=== PATIENT | female | born 1995 | race Caucasian/White ===

== ENCOUNTER 2020-10-13 01:17 | Emergency (ER) | payer BC ==
[2020-10-13 01:25] VITALS: TEMP 97.8
--- NOTE | 2020-10-13 02:21 | XR ---
EXAM: XR Chest, 2 Views CLINICAL HISTORY: ITS.REASON XR Reason: congestion TECHNIQUE: Frontal and lateral views of the chest. COMPARISON: No relevant prior studies available. FINDINGS: Lungs: Mild perihilar/hilar opacities. Pleural space: No significant pleural effusion or pneumothorax. Heart: Unremarkable. Mediastinum: Unremarkable. Bones/joints: No acute fracture. IMPRESSION: Mild perihilar/hilar opacities. Correlate clinically regarding inflammatory/infectious process.
--- NOTE | 2020-10-13 02:44 | ED ---
URI HPI - General Chief Complaint: Upper Respiratory Infection Stated Complaint: Chest Pain Time Seen by Provider: 10/13/20 01:28 Source: patient Mode of arrival: ambulatory Limitations: no limitations - History of Present Illness Initial Comments: This patient is 25-year-old woman who presents with a feeling of chest congestion. The patient states she was in her usual state of health until approximately week ago when she developed some symptoms she thought were due to ALLERGIES. She was having some nasal congestion and drainage. She is noticing postnasal drip. It seemed over the interval that she developed some chest congestion and a little bit of cough. When the symptoms persisted she also should have evaluation. The patient notes that she did receive first covid vaccination last week. MD Complaint: cough, other Onset/Timin -: week(s) Severity: mild Consistency: constant Improves With: nothing Worsens With: nothing Associated Symptoms: cough - Related Data Previous Rx's Medication Instructions Recorded Azithromycin [Zithromax Z-pack (6 250 mg PO DIRECTED #6 tab 10/13/20 tabs)] predniSONE [Deltasone] 20 mg PO BID #8 tab 10/13/20 Allergies Allergy/AdvReac Type Severity Reaction Status Date / Time sulfamethoxazole Allergy Rash/Hives Verified 10/13/20 01:25 [From ] trimethoprim [From ] Allergy Rash/Hives Verified 10/13/20 01:25 Review of Systems ROS Statement: Those systems with pertinent positive or pertinent negative responses have been documented in the HPI. ROS Other: All systems not noted in ROS Statement are negative. Constitutional: Denies: fever, chills Respiratory: Reports: cough, dyspnea. Denies: hemoptysis Cardiovascular: Denies: chest pain, palpitations, edema Gastrointestinal: Denies: abdominal pain, vomiting, diarrhea Genitourinary: Denies: dysuria, hematuria Musculoskeletal: Denies: back pain Skin: Denies: rash Neurological: Denies: headache, weakness, numbness Past Medical History Past Medical History: No Reported History History of Any Multi-Drug Resistant Organisms: None Reported Additional Past Surgical History / Comment(s): lump removal Past Psychological History: No Psychological Hx Reported Smoking Status: Never smoker Past Alcohol Use History: None Reported Past Drug Use History: None Reported General Exam Limitations: no limitations General appearance: alert, in no apparent distress Head exam: Present: atraumatic, normocephalic Eye exam: Present: normal appearance. Absent: scleral icterus, conjunctival injection ENT exam: Present: normal oropharynx, mucous membranes moist Neck exam: Present: normal inspection, full ROM Respiratory exam: Present: normal lung sounds bilaterally. Absent: respiratory distress, wheezes, rales, rhonchi, stridor Cardiovascular Exam: Present: regular rate, normal rhythm, normal heart sounds. Absent: systolic murmur, diastolic murmur, rubs, gallop GI/Abdominal exam: Present: soft. Absent: distended, tenderness, guarding, rebound, rigid, mass Extremities exam: Present: normal inspection, normal capillary refill. Absent: pedal edema, calf tenderness Back exam: Present: normal inspection. Absent: CVA tenderness (R), CVA tenderness (L) Neurological exam: Present: alert Skin exam: Present: warm, dry, intact, normal color. Absent: rash Course Vital Signs 10/13/20 01:22 Temperature 97.8 F Pulse Rate 91 Respiratory 20 Rate Blood Pressure 124/84 O2 Sat by Pulse 99 Oximetry Medical Decision Making - Medical Decision Making Patient is 25-year-old woman presenting with some chest congestion followed some upper respiratory symptoms. 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 Patient will be started on steroid after she received a dose of that here. She is given prescription for azithromycin to start should she develop any symptoms suggestive of infection and these were discussed with patient and family. Including but not limited to fever, increasing cough, purulent sputum, etc. Discussed appropriate further care and return parameters. - Lab Data Lab Results 10/13/20 Range/Units 02:46 Coronavirus (PCR) Not Detected (Not Detectd) - EKG Data -: EKG Interpreted by Mi EKG shows normal: sinus rhythm, axis (Normal), intervals (Normal), QRS complexes (Normal), ST-T waves (Normal) Rate: tachycardia (Rate 104 bpm) Disposition Clinical Impression: Acute bronchitis Disposition: HOME SELF-CARE Condition: Good Instructions (If sedation given, give patient instructions): Acute Bronchitis (ED) Prescriptions: predniSONE [Deltasone] 20 mg PO BID #8 tab Azithromycin [Zithromax Z-pack (6 tabs)] 250 mg PO DIRECTED #6 tab Is patient prescribed a controlled substance at d/c from ED?: No Referrals: Presley Osei Jr, DO [Primary Care Provider] - 1-2 days
[2020-10-13] MEDS ORDERED: AZITHROMYCIN 500 MG TAB PO STA (03:35)
[2020-10-13] MEDS ORDERED: predniSONE 20 MG TAB PO STA (03:35)
[2020-10-13 03:59] VITALS: BP 125/81; PULSE 76; RESP 18
== END 2020-10-13 03:58 | disposition home or self-care (01) ==
LOC: EC 01:17 → MERGE 01:17 → EC 03:58
DX: J20.9 Acute bronchitis, unspecified (principal); Z88.2 Allergy status to sulfonamides; Z88.1 Allergy status to other antibiotic agents; Z20.822 Contact with and (suspected) exposure to COVID-19
CPT/HCPCS: 99285; 93005; 87635; 71046; J7512

== ENCOUNTER → 2021-05-05 | Outpatient (CLI) | payer BC ==
--- NOTE | 2021-05-05 08:06 | CT ---
EXAMINATION TYPE: CT sinus wo con DATE OF EXAM: 05/05/2021 COMPARISON: NONE HISTORY: polyp maxillary sinus. CT DLP: 731.60 mGycm. Automated Exposure Control for Dose Reduction was Utilized. TECHNIQUE: CT scan of the sinuses is performed without contrast, axial images are obtained, coronal r eformatted images are also reviewed. FINDINGS: Mild mucosal thickening with scattered tiny polyps and/or cysts in the inferior aspect of t he left maxillary sinus measuring up to 8 mm axial image 16. More mild to moderate mucosal thickening with larger 17 mm polyp or cyst in the inferior right maxillary sinus axial image 11. Patchy inferio r secretions. Mild mucosal thickening anteriorly and bilateral sphenoid sinuses. Partially ossified soft tissue or thickened mucosa on the larger caliber right sphenoid sinus. Mild mucosal thickening in ethmoid sinuses bilaterally. Bilateral frontal sinuses are clear. There are ovoid opacifications or suspected mucous retention cysts or polyps centrally filling the bi lateral ethmoid bulla near maxillary antrum. Patency narrowing on the left is present coronal image 2 6. There is occlusion on the right due to central mucosal thickening. Visualized portion of mastoid air cells show no abnormal opacification. The globes are intact bilat erally. Slight brain parenchyma unremarkable. IMPRESSION: Bilateral paranasal sinus disease as detailed above predominately chronic in nature, acut e component inferiorly right maxillary sinus is however present.
== END | disposition home or self-care (01) ==
LOC: RADCTMAIN 06:31
PROVIDERS: ATTEND Otolaryngology
DX: J33.9 Nasal polyp, unspecified (principal); J32.9 Chronic sinusitis, unspecified
CPT/HCPCS: 70486

== ENCOUNTER → 2021-11-11 | Outpatient (CLI) | payer BC | END | disposition home or self-care (01) | LOC: LABPAT 10:01 | PROVIDERS: ATTEND Obstetrics & Gynecology | DX: Z01.812 Encounter for preprocedural laboratory examination (principal) | CPT/HCPCS: 85025; 86850; 86900; 86901 ==

== ENCOUNTER 2021-11-12 07:21 | Day surgery (SDC) | payer BC ==
[2021-11-11 10:44] LABS: Basophils % (A) 1 %; Eosinophils # (A) 0.1 k/uL (0-0.7); Eosinophils % (A) 1 %; HCT 41.5 % (34.0-46.0); HGB 14.1 gm/dL (11.4-16.0); Lymphocytes # (A) 1.2 k/uL (1.0-4.8); Lymphocytes % (A) 14 %; MCHC 33.9 g/dL (31.0-37.0); MCV 94.2 fL (80.0-100.0); Mean Platelet Volume 7.5; Monocytes # (A) 0.4 k/uL (0-1.0); Monocytes % (A) 5 %; Neutrophils # (A) 6.6 k/uL (1.3-7.7); Neutrophils % (A) 78 %; Platelet Count 331 k/uL (150-450); RDW 12.2 % (11.5-15.5); WBC 8.5 k/uL (3.8-10.6)
[2021-11-11 13:50] VITALS: BMI 28.3
--- NOTE | 2021-11-12 07:00 | P.HPOB ---
History of Present Illness H&P Date: 11/12/21 Chief Complaint: interstitial 26 year old G0 presented to the office c/o pelvic pain. US shows an interstitial in the right cornua/IP. The plan today will be laparoscopic cornuostomy with removal of ectopic. Pt understands this could result in Total abdominal hysterectomy. All Risks, benefits and alternatives have been discussed. Review of Systems All systems: negative Constitutional: Denies chills, Denies fever Eyes: denies blurred vision, denies pain Ears, nose, mouth and throat: Denies headache, Denies sore throat Cardiovascular: Denies chest pain, Denies shortness of breath Respiratory: Denies cough Gastrointestinal: Denies abdominal pain, Denies diarrhea, Denies nausea, Denies vomiting Genitourinary: Denies dysuria, Denies hematuria Musculoskeletal: Denies myalgias Integumentary: Denies pruritus, Denies rash Neurological: Denies numbness, Denies weakness Psychiatric: Denies anxiety, Denies depression Endocrine: Denies fatigue, Denies weight change Past Medical History Past Medical History: No Reported History History of Any Multi-Drug Resistant Organisms: None Reported Past Surgical History: Tonsillectomy Additional Past Surgical History / Comment(s): lump removal FROM ARM Past Anesthesia/Blood Transfusion Reactions: No Reported Reaction Smoking Status: Never smoker - Past Family History Mother Family Medical History: No Reported History Medications and Allergies Home Medications Medication Instructions Recorded Confirmed Type Cephalexin [Keflex] 500 mg PO Q12HR 11/11/21 11/11/21 History Allergies Allergy/AdvReac Type Severity Reaction Status Date / Time sulfamethoxazole Allergy Rash/Hives Verified 11/11/21 13:22 [From ] trimethoprim [From ] Allergy Rash/Hives Verified 11/11/21 13:22 Exam Osteopathic Statement: *. No significant issues noted on an osteopathic structural exam other than those noted in the History and Physical/Consult. Intake and Output 11/11/21 11/11/21 11/12/21 14:59 22:59 06:59 Other: Weight 74.843 kg HEart: RRR Lungs: CTAB Abdomen: soft, tender in low pelvis Extremeties: neg nav's Assessment and Plan (1) Cornual Status: Acute Code(s): O00.80 - OTHER ECTOPIC WITHOUT INTRAUTERINE SNOMED Code(s): 29893596 Plan: Laparoscopic cornuostomy with removal of ectopic using da eder
[2021-11-12] MEDS ORDERED: MIDAZOLAM 2 MG/2 ML VIAL IV PRN (07:35)
[2021-11-12] MEDS ORDERED: ONDANSETRON 4 MG/2 ML VIAL IVP ONE (07:35)
[2021-11-12] MEDS ORDERED: DEXAMETHASONE SOD PHOSPHATE 4 MG/ML 1 ML VIAL IV ONE (07:35)
[2021-11-12] MEDS ORDERED: LIDOCAINE 1% (10MG/ML) FOR IV START INTRADERMA PRN (07:35)
[2021-11-12] MEDS ORDERED: HYDROmorphone 0.5 MG/0.5 ML SYRINGE IVP PRN (07:35)
[2021-11-12] MEDS ORDERED: LIDOCAINE 1% (10MG/ML) FOR IV START SQ ONE (08:14)
[2021-11-12] MEDS: LACTATED RINGERS 1,000 ML IV SCH ×2 (08:14→16:44)
[2021-11-12] MEDS ORDERED: MIDAZOLAM 2 MG/2 ML VIAL IV ONE (09:23)
[2021-11-12] MEDS ORDERED: ROCURONIUM 10 MG/ML (5 ML VIAL) IV ONE (09:54)
[2021-11-12] MEDS ORDERED: PROPOFOL 10 MG/ML 20 ML VIAL IV ONE (09:54)
[2021-11-12] MEDS ORDERED: fentaNYL (PF) 50 MCG/ML 2 ML AMP ONE (09:54)
[2021-11-12] MEDS ORDERED: SUCCINYLCHOLINE CHLORIDE 100 MG/5 ML SYR IV ONE (09:54)
[2021-11-12] MEDS ORDERED: MIDAZOLAM 2 MG/2 ML VIAL ONE (09:54)
[2021-11-12] MEDS ORDERED: NEOSTIGMINE 1 MG/ML 10 ML VIAL ONE (09:54)
[2021-11-12] MEDS ORDERED: LIDOCAINE 2% INJ 20 MG/ML (2 ML VIAL) ONE (09:54)
[2021-11-12] MEDS ORDERED: GLYCOPYRROLATE 0.2 MG/ML 2 ML VIAL ONE (09:54)
[2021-11-12] MEDS ORDERED: HYDROmorphone (PF) 1 MG/ML ONE (09:54)
[2021-11-12] MEDS ORDERED: KETOROLAC 30 MG/ML 1 ML VIAL ONE (09:54)
[2021-11-12] MEDS ORDERED: LACTATED RINGERS 1,000 ML IV ONE (10:30)
[2021-11-12] MEDS ORDERED: BUPIVACAINE (PF) 0.25% 30 ML VIAL SQ ONE (10:32)
[2021-11-12] MEDS ORDERED: VASOPRESSIN 20 UNIT/ML 1 ML VIAL IM ONE (10:33)
[2021-11-12] MEDS ORDERED: CELLULOSE,OXIDIZED 1 EACH EACH MISCELLANE ONE (11:09)
--- NOTE | 2021-11-12 12:05 | P.OP ---
Date of Procedure: 11/12/21 Preoperative Diagnosis: 1. 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 Interstitial of the right cornua Procedure(s) Performed: Laparoscopic cornu ostomy with removal of ectopic , removal of right complex ovarian cyst, lysis of adhesions Anesthesia: AMANDA Surgeon: Ginny Pastor Estimated Blood Loss (ml): 25 IV fluids (ml): 800 Urine output (ml): 150 Pathology: other (Ectopic and piece of ovarian cyst) Condition: stable Disposition: PACU Operative Findings: Bulge in the right cornua. Uterus sounded to 7 cm. Extensive filmy bowel adhesions to the right pelvic sidewall and anterior abdominal wall. Complex ovarian cyst in the right ovary. Description of Procedure: Patient taken the operating room where general anesthesia was obtained without difficulty. She is prepped and draped in normal sterile fashion dorsal lithotomy position, legs placed in the Fabian stirrups. Weighted speculum placed in the vagina and the anterior lip the cervix was grasped with single-tooth tenaculum. The uterus gently sounded to 7 cm and the kroner manipulator was gently placed. Crook catheter was also placed. Attention was then turned to the abdomen and gloves were changed. A 5 mm supraumbilical incision was made the scalpel and a 5 mm optical trocar was placed under direct visualization. 10 cm to the right of this and 2 cm down a 5 mm incision was made and 8 mm da Emmett port was placed under direct visualization. Same measurements on the opposite side of the patient's abdomen, the 5 mm incision was made and 8 mm da Emmett port was placed under direct visualization. In the left upper quadrant a 10 mm incision was made and a 10 mm optical trocar was placed under direct visualization. The 5 mm optical trocar was then replaced with the 8 mm da Emmett camera port. The robot was docked on patient's right side. A 20-gauge spinal needle and under direct visualization through the low pelvis as my licensed physical therapy assistant anteverted the uterus. I used diluted vasopressin, 20 units in 60 mL and injected in a few different areas around and above the ectopic bulge this diluted vasopressin. I used 17 mL. The uterus blanched and it was evident that the vasoconstriction was effective. The camera was introduced and then the monopolar curved scissor and fenestrated bipolar placed under direct visualization. I broke scrub and went to the physician console. The uterus is anteverted and the bulge was noted in the right cornu the posterior aspect of the uterus posterior to the round ligament and fallopian tube. I took the monopolar curved scissors and made a linear transverse cut on the cornua of the uterus all the way down to the endometrium. A small amount of Chocolate fluid did pour out. I removed the gestational and endometrial tissue noted beneath this area. Hemostasis was assured. The right ovary did have a complex cyst on it as well. I broke this open and took a piece of the cyst for pathology. Hemostasis was assured with the monopolar curved scissors. Pieces of 0 Vicryl were then used to close the cornuostomy in [id number] stitches. The pelvis was copiously irrigated and hemostasis was again assured. I then placed a piece of Interceed over the fundus of the uterus contacted behind the right ovary to prevent further adhesions. All instruments were removed from the abdomen and the robot was undocked. I scrubbed back in to perform a cystoscopy. There were jets from both ureteral orifices. The abdominal incisions were closed with 4-0 Vicryl in a subcuticular fashion. Patient tolerated the procedure well, sponge and instrument counts correct 2 and she was taken to recovery room in stable condition condition
[2021-11-12] MEDS ORDERED: SIMETHICONE 80 MG CHEWABLE PO PRN (12:59)
[2021-11-12] MEDS ORDERED: ONDANSETRON 4 MG/2 ML VIAL IVP PRN (12:59)
[2021-11-12] MEDS ORDERED: Acetaminophen-Codeine 300-30mg TAB PO PRN (12:59)
[2021-11-12] MEDS ORDERED: IBUPROFEN 600 MG TAB PO PRN (12:59)
[2021-11-12] MEDS: KETOROLAC 15 MG/ML 1 ML VIAL IVP PRN ×2 (13:11→19:54)
[2021-11-12 13:16] VITALS: RESP 16
[2021-11-12] MEDS: Acetaminophen-Codeine 300-30mg TAB PO PRN ×2 (15:52→22:35)
[2021-11-12] MEDS: SENNOSIDES-DOCUSATE SODIUM 1 EACH TAB PO SCH (22:36)
[2021-11-12] MEDS: CEPHALEXIN 500 MG CAP PO SCH (22:36)
[2021-11-12 23:59] VITALS: BP 103/71; PULSE 98; TEMP 98.5
[2021-11-13] MEDS: KETOROLAC 15 MG/ML 1 ML VIAL IVP PRN (06:08)
--- NOTE | 2021-11-13 07:53 | P.DS ---
Providers Expected date of discharge: 11/13/21 Attending physician: Ginny Pastor Primary care physician: Presley Osei - Discharge Diagnosis(es) (1) Cornual Current Visit: No Status: Resolved (2) Status post robot-assisted surgical procedure Current Visit: Yes Status: Acute Hospital Course: Patient presented for laparoscopic removal of ectopic via cornuostomy using da Emmett. She underwent this procedure without crepitation. Postoperatively she is doing very well. Denies nausea, vomiting, chest pain, shortness of breath or any calf pain. Vitals are stable and she will be discharged home postoperative day #1 in stable condition. I have advised the patient and her that I want to follow her hormone level until 0. I will order one beta hCG today to get started and then we will follow this weekly until 0. She will follow-up with me in the office in 1 week. Plan - Discharge Summary Discharge Rx Participant: Yes New Discharge Prescriptions: New Ibuprofen [Motrin] 600 mg PO Q6HR PRN #40 tab PRN Reason: Mild Discomfort Acetaminophen-Codeine 300-30mg [Tylenol w/codeine #3] 1 - 2 each PO Q6HR PRN #24 tab PRN Reason: Severe Pain No Action Cephalexin [Keflex] 500 mg PO Q12HR Discharge Medication List Cephalexin [Keflex] 500 mg PO Q12HR 11/11/21 [History] Acetaminophen-Codeine 300-30mg [Tylenol w/codeine #3] 1 - 2 each PO Q6HR PRN #24 tab 11/13/21 [Rx] Ibuprofen [Motrin] 600 mg PO Q6HR PRN #40 tab 11/13/21 [Rx] Follow up Appointment(s)/Referral(s): Ginny Pastor DO [Doctor of Osteopathic Medicine] - 1 Week Discharge Disposition: HOME SELF-CARE
[2021-11-13] MEDS: CEPHALEXIN 500 MG CAP PO SCH (08:44)
[2021-11-13] MEDS: Acetaminophen-Codeine 300-30mg TAB PO PRN (08:44)
[2021-11-13] MEDS: SENNOSIDES-DOCUSATE SODIUM 1 EACH TAB PO SCH (09:13)
[2021-11-13] MEDS ORDERED: ACETAMINOPHEN TAB 325 MG TAB PO PRN (11:54)
== END 2021-11-13 09:52 | disposition home or self-care (01) ==
LOC: OR 07:21 → 4FBP 11:28 → OR 11-13 09:52
PROVIDERS: ATTEND Obstetrics & Gynecology
DX: O00.81 Other ectopic pregnancy with intrauterine pregnancy (principal); N83.201 Unspecified ovarian cyst, right side; K66.0 Peritoneal adhesions (postprocedural) (postinfection); Z98.890 Other specified postprocedural states; Z88.2 Allergy status to sulfonamides
CPT/HCPCS: 86900; 86901; 88305; 85025; 86850; 84702; 59150; J2250; J1100; J2710; J0690; J2405; J3010; J1885 ×3; J1170 ×2; J0330; J2704; J2001

== ENCOUNTER 2023-04-17 02:38 | Emergency (ER) | payer BC ==
[2023-04-17 02:54] VITALS: RESP 18
[2023-04-17] MEDS ORDERED: ONDANSETRON 4 MG/2 ML VIAL IVP STA (02:54)
[2023-04-17] MEDS ORDERED: SODIUM CHLORIDE 0.9% 1,000 ML IV ONE (02:54)
[2023-04-17] MEDS ORDERED: DEXTROSE 5%-0.9% NACL 1,000 ML IV SCH (03:00)
[2023-04-17 03:39] LABS: Basophils % (A) 0 %; Eosinophils # (A) 0.1 k/uL (0-0.7); Eosinophils % (A) 1 %; HCT 38.7 % (34.0-46.0); HGB 13.4 gm/dL (11.4-16.0); Lymphocytes # (A) 0.7 k/uL (1.0-4.8); Lymphocytes % (A) 8 %; MCH 31.5 pg (25.0-35.0); MCHC 34.5 g/dL (31.0-37.0); MCV 91.4 fL (80.0-100.0); Mean Platelet Volume 7.8; Monocytes # (A) 0.5 k/uL (0-1.0); Monocytes % (A) 6 %; Neutrophils # (A) 7.1 k/uL (1.3-7.7); Neutrophils % (A) 84 %; Platelet Count 232 k/uL (150-450); RBC 4.24 m/uL (3.80-5.40); RDW 12.2 % (11.5-15.5); WBC 8.4 k/uL (3.8-10.6)
[2023-04-17 03:53] LABS: ALT 38 U/L (4-34); AST 47 U/L (14-36); African American GFR (CKD) >90 (>60 ml/min/1.73 sqM); Albumin 3.9 g/dL (3.5-5.0); Alkaline Phosphatase 86 U/L (38-126); Anion Gap 12 mmol/L; Blood Urea Nitrogen 9 mg/dL (7-17); Calcium 9.2 mg/dL (8.4-10.2); Carbon Dioxide 18 mmol/L (22-30); Chloride 104 mmol/L (98-107); Glucose 96 mg/dL (74-99); Non-African American GFR(CKD) >90 (>60 ml/min/1.73 sqM); Potassium 3.9 mmol/L (3.5-5.1); Sodium 134 mmol/L (137-145); Total Bilirubin 0.6 mg/dL (0.2-1.3); Total Protein 6.9 g/dL (6.3-8.2)
[2023-04-17 04:35] LABS: Amorphous Sediment,Urine Occasional /hpf; Appearance,Urine Cloudy (Clear); Bacteria,Urine Rare /hpf; Bilirubin,Urine Negative (Negative); Blood,Urine Negative (Negative); Color,Urine Yellow; Glucose,Urine (UA) Negative (Negative); Hyaline Casts,Urine 1 /lpf (0-2); Ketones,Urine 4+ (Negative); Leukocyte Esterase,Urine Negative (Negative); Mucus,Urine Moderate /hpf; Nitrite,Urine Negative (Negative); Protein,Urine 1+ (Negative); RBC,Urine 1 /hpf (0-5); Squamous Epithelial Cell,Urine 8 /hpf (0-4); Urobilinogen,Urine <2.0 mg/dL (<2.0); WBC,Urine 2 /hpf (0-5)
--- NOTE | 2023-04-17 04:44 | ED ---
General Adult HPI - General Chief complaint: Nausea/Vomiting/Diarrhea Stated complaint: nausea,vomiting,15 wks preg Time Seen by Provider: 04/17/23 02:49 Source: patient, RN notes reviewed Mode of arrival: ambulatory Limitations: no limitations - History of Present Illness Initial comments: 28-year-old female who is G1, P0 presents to the emergency department with a chief complaint of acute nausea and vomiting. Patient reports she has been nauseous with episodes of vomiting over the last 24 hours. She denies recent sick contacts. She has not been taking any medications at home for her symptoms. Denies known recent sick contacts. She denies any abdominal pain, fever, cough, chills, flank pain, dysuria, hematuria, vaginal bleeding, vaginal discharge or low back pain. This is her first she is approximately 15 weeks along. She denies any nausea or vomiting in her first trimester. - Related Data Home Medications Medication Instructions Recorded Confirmed Cephalexin [Keflex] 500 mg PO Q12HR 11/11/21 11/12/21 Previous Rx's Medication Instructions Recorded Acetaminophen-Codeine 300-30mg 1 - 2 each PO Q6HR PRN #24 tab 11/13/21 [Tylenol w/codeine #3] Ibuprofen [Motrin] 600 mg PO Q6HR PRN #40 tab 11/13/21 Ondansetron Odt [Zofran Odt] 4 mg PO Q8HR PRN #10 tab 04/17/23 Allergies Allergy/AdvReac Type Severity Reaction Status Date / Time sulfamethoxazole Allergy Rash/Hives Verified 04/17/23 02:43 [From Sept] trimethoprim [From Septra] Allergy Rash/Hives Verified 04/17/23 02:43 Review of Systems ROS Statement: Those systems with pertinent positive or pertinent negative responses have been documented in the HPI. ROS Other: All systems not noted in ROS Statement are negative. Past Medical History Past Medical History: No Reported History History of Any Multi-Drug Resistant Organisms: None Reported Past Surgical History: Tonsillectomy Additional Past Surgical History / Comment(s): lump removal FROM ARM Past Anesthesia/Blood Transfusion Reactions: No Reported Reaction Past Psychological History: No Psychological Hx Reported Smoking Status: Never smoker Past Alcohol Use History: None Reported Past Drug Use History: None Reported - Past Family History Mother Family Medical History: No Reported History General Exam - General Exam Comments Initial Comments: General: Alert, in no acute distress Head: atraumatic normocephalic. Eyes PERRL, EOMI intact, mucous membranes moist Respiratory: Lungs clear to auscultation bilaterally Cardiovascular: Regular Rate and rhythm Abdominal: Soft without guarding or rebound, non-tender Extremities: Normal inspection with full range of motion and normal capillary refill Neuroogic: alert and oriented 3, CN II-XII intact, able to ambulate with steady gait Skin: warm dry and intact with normal color Limitations: no limitations Course Vital Signs 04/17/23 04/17/23 04/17/23 02:43 03:45 05:00 Temperature 98.3 F Pulse Rate 98 92 84 Respiratory 18 18 18 Rate Blood Pressure 123/86 122/70 118/68 O2 Sat by Pulse 98 100 98 Oximetry 04/17/23 05:25 Temperature 98.0 F Pulse Rate Respiratory Rate Blood Pressure O2 Sat by Pulse Oximetry - Reevaluation(s) Reevaluation #1: 04/17/23 04:39 Patient reevaluated. Patient reports symptomatic improvement status post medications. Aware awaiting urinalysis results. Reevaluation #2: 04/17/23 05:17 Patient reevaluated. Patient able to tolerate oral intake. Medical Decision Making - Medical Decision Making Was pt. sent in by a medical professional or institution (RUBEN Aguilera, TIME CLOCK REPAIRER, urgent care, hospital, or shelter...) When possible be specific @ -[No] Did you speak to anyone other than the patient for history (EMS, parent, family, police, friend...)? What history was obtained from this source @ -[No] Did you review nursing and triage notes (agree or disagree)? Why? @ -[I reviewed and agree with nursing and triage notes] Were old charts reviewed (outside hosp., previous admission, EMS record, old EKG, old radiological studies, urgent care reports/EKG's, shelter records)? Report findings @ -[No old charts were reviewed] Differential Diagnosis (chest pain, altered mental status, abdominal pain women, abdominal pain men, vaginal bleeding, weakness, fever, dyspnea, syncope, headache, dizziness, GI bleed, back pain, seizure, CVA, palpatations, mental health, musculoskeletal)? @ -[not applicable] EKG interpreted by me (3pts min.). @ -[As above] X-rays interpreted by me (1pt min.). @ -[None done] CT interpreted by me (1pt min.). @ -[None done] U/S interpreted by me (1pt. min.). @ -[None done] What testing was considered but not performed or refused? (CT, X-rays, U/S, labs)? Why? @ -[None] What meds were considered but not given or refused? Why? @ -[None] Did you discuss the management of the patient with other professionals (professionals i.e. , PA, TIME CLOCK REPAIRER, lab, RT, psych nurse, social services, rand sewer, teacher, emergency response officer, window caser)? Give summary @ -[No] Was smoking cessation discussed for >3mins.? @ -[No] Was critical care preformed (if so, how long)? @ -[No] Were there social determinants of health that impacted care today? How? (Homelessness, low income, unemployed, alcoholism, drug addiction, transportation, low edu. Level, literacy, decrease access to med. care, long term, rehab)? @ -[No] Was there de-escalation of care discussed even if they declined (Discuss DNR or withdrawal of care, Hospice)? DNR status @ -[No] What co-morbidities impacted this encounter? (DM, HTN, Smoking, COPD, CAD, Cancer, CVA, ARF, Chemo, Hep., AIDS, mental health diagnosis, sleep apnea, morbid obesity)? @ -[None] Was patient admitted / discharged? Hospital course, mention meds given and route, prescriptions, significant lab abnormalities, going to OR and other pertinent info. @ -Discharged. This is a pleasant 28-year-old female who presents the emergency department with nausea and vomiting. Patient had a thorough history and physical exam performed. Vital signs are stable. Patient afebrile. Heart rate regular rate and rhythm, lungs are to auscultation bilaterally abdomen is soft and gravid. Patient did not have any episodes of vomiting during the course of the ED. She was provided Zofran, Pepcid, 1 L IV fluids and D5 symptomatic improvement. Patient was able to pass by mouth challenge. Patient had laboratory studies which were essentially unremarkable. 4+ ketones noted in the urine. She is agreeable with the plan for discharge home. Return precautions discussed at length. Recommend close follow-up with primary [facility]SE [facility]CKER in 1-2 days. Case discussed with Dr. Monroe, ED attending who agrees with plan of care Undiagnosed new problem with uncertain prognosis? @ -[No] Drug Therapy requiring intensive monitoring for toxicity (Heparin, Nitro, Insulin, Cardizem)? @ -[No] Were any procedures done? @ -[No] Diagnosis/symptom? @ -Nausea and Vomiting Acute, or Chronic, or Acute on Chronic? @ -Acute Uncomplicated (without systemic symptoms) or Complicated (systemic symptoms)? @ -Uncomplicated Side effects of treatment? @ -[No] Exacerbation, Progression, or Severe Exacerbation? @ -[No] Poses a threat to life or bodily function? How? (Chest pain, [place], [place], pneumonia, PE, COPD, DKA, ARF, appy, cholecystitis, CVA, Diverticulitis, Homicidal, Suicidal, threat to staff... and all critical care pts) @ -Low likleihood - Lab Data Result diagrams: 04/17/23 03:25 04/17/23 03:25 Lab Results 04/17/23 04/17/23 04/17/23 Range/Units 03:25 03:25 03:25 WBC 8.4 (3.8-10.6) k/uL RBC 4.24 (3.80-5.40) m/uL Hgb 13.4 (11.4-16.0) gm/dL Hct 38.7 (34.0-46.0) % MCV 91.4 (80.0-100.0) fL MCH 31.5 (25.0-35.0) pg MCHC 34.5 (31.0-37.0) g/dL RDW 12.2 (11.5-15.5) % Plt Count 232 (150-450) k/uL MPV 7.8 Neutrophils % 84 % Lymphocytes % 8 % Monocytes % 6 % Eosinophils % 1 % Basophils % 0 % Neutrophils # 7.1 (1.3-7.7) k/uL Lymphocytes # 0.7 L (1.0-4.8) k/uL Monocytes # 0.5 (0-1.0) k/uL Eosinophils # 0.1 (0-0.7) k/uL Basophils # 0.0 (0-0.2) k/uL Sodium 134 L (137-145) mmol/L Potassium 3.9 (3.5-5.1) mmol/L Chloride 104 (98-107) mmol/L Carbon Dioxide 18 L (22-30) mmol/L Anion Gap 12 mmol/L BUN 9 (7-17) mg/dL Creatinine 0.39 L (0.52-1.04) mg/dL Est GFR (CKD-EPI)AfAm >90 (>60 ml/min/1.73 sqM) Est GFR (CKD-EPI)NonAf >90 (>60 ml/min/1.73 sqM) Glucose 96 (74-99) mg/dL Calcium 9.2 (8.4-10.2) mg/dL Total Bilirubin 0.6 (0.2-1.3) mg/dL AST 47 H (14-36) U/L ALT 38 H (4-34) U/L Alkaline Phosphatase 86 (38-126) U/L Total Protein 6.9 (6.3-8.2) g/dL Albumin 3.9 (3.5-5.0) g/dL Urine Color Urine Appearance (Clear) Urine pH (5.0-8.0) Ur Specific [place] (1.001-1.035) Urine Protein (Negative) Urine Glucose (UA) (Negative) Urine Ketones (Negative) Urine Blood (Negative) Urine Nitrite (Negative) Urine Bilirubin (Negative) Urine Urobilinogen (<2.0) mg/dL Ur Leukocyte Esterase (Negative) Urine RBC (0-5) /hpf Urine WBC (0-5) /hpf Ur Squamous Epith Cells (0-4) /hpf Amorphous Sediment (None) /hpf Urine Bacteria (None) /hpf Hyaline Casts (0-2) /lpf Urine Mucus (None) /hpf Influenza Type A (PCR) Not Detected (Not Detectd) Influenza Type B (PCR) Not Detected (Not Detectd) RSV (PCR) Not Detected (Not Detectd) SARS-CoV-2 (PCR) Not Detected (Not Detectd) 04/17/23 Range/Units 03:50 WBC (3.8-10.6) k/uL RBC (3.80-5.40) m/uL Hgb (11.4-16.0) gm/dL Hct (34.0-46.0) % MCV (80.0-100.0) fL MCH (25.0-35.0) pg MCHC (31.0-37.0) g/dL RDW (11.5-15.5) % Plt Count (150-450) k/uL MPV Neutrophils % % Lymphocytes % % Monocytes % % Eosinophils % % Basophils % % Neutrophils # (1.3-7.7) k/uL Lymphocytes # (1.0-4.8) k/uL Monocytes # (0-1.0) k/uL Eosinophils # (0-0.7) k/uL Basophils # (0-0.2) k/uL Sodium (137-145) mmol/L Potassium (3.5-5.1) mmol/L Chloride (98-107) mmol/L Carbon Dioxide (22-30) mmol/L Anion Gap mmol/L BUN (7-17) mg/dL Creatinine (0.52-1.04) mg/dL Est GFR (CKD-EPI)AfAm (>60 ml/min/1.73 sqM) Est GFR (CKD-EPI)NonAf (>60 ml/min/1.73 sqM) Glucose (74-99) mg/dL Calcium (8.4-10.2) mg/dL Total Bilirubin (0.2-1.3) mg/dL AST (14-36) U/L ALT (4-34) U/L Alkaline Phosphatase (38-126) U/L Total Protein (6.3-8.2) g/dL Albumin (3.5-5.0) g/dL Urine Color Yellow Urine Appearance Cloudy H (Clear) Urine pH 6.0 (5.0-8.0) Ur Specific [place] 1.030 (1.001-1.035) Urine Protein 1+ H (Negative) Urine Glucose (UA) Negative (Negative) Urine Ketones 4+ H (Negative) Urine Blood Negative (Negative) Urine Nitrite Negative (Negative) Urine Bilirubin Negative (Negative) Urine Urobilinogen <2.0 (<2.0) mg/dL Ur Leukocyte Esterase Negative (Negative) Urine RBC 1 (0-5) /hpf Urine WBC 2 (0-5) /hpf Ur Squamous Epith Cells 8 H (0-4) /hpf Amorphous Sediment Occasional H (None) /hpf Urine Bacteria Rare H (None) /hpf Hyaline Casts 1 (0-2) /lpf Urine Mucus Moderate H (None) /hpf Influenza Type A (PCR) (Not Detectd) Influenza Type B (PCR) (Not Detectd) RSV (PCR) (Not Detectd) SARS-CoV-2 (PCR) (Not Detectd) Disposition Clinical Impression: Nausea and vomiting in adult, Disposition: HOME SELF-CARE Condition: Stable Instructions (If sedation given, give patient instructions): Acute Nausea and Vomiting (ED) Additional Instructions: PLease take zofran for nausea Can eat popsicless for hydration Can take 6-8 ice cubes an hour for hydration Please follow-up with her primary HOUSE WRECKER in 1-2 days. Return to the nearest emergency department if worsening symptoms, abdominal pain, flank pain blood in urine or vaginal bleeding develop Prescriptions: Ondansetron Odt [Zofran Odt] 4 mg PO Q8HR PRN #10 tab PRN Reason: Nausea Is patient prescribed a controlled substance at d/c from ED?: No Referrals: Presley Osei Jr, DO [Primary Care Provider] - 1-2 days Time of Disposition: 04:41
[2023-04-17 05:48] VITALS: BP 118/68; PULSE 84; TEMP 98
== END 2023-04-17 05:29 | disposition home or self-care (01) ==
LOC: EC 02:38
DX: O21.9 Vomiting of pregnancy, unspecified (principal); O99.820 Streptococcus B carrier state complicating pregnancy; Z88.2 Allergy status to sulfonamides; Z3A.15 15 weeks gestation of pregnancy; Z20.822 Contact with and (suspected) exposure to COVID-19
CPT/HCPCS: 36415; 80053; 85025; 81001; 87086; 87636; 99284; 96374; 96361 ×2; J2405

== ENCOUNTER 2023-08-09 08:09 | Emergency (ER) | payer BC ==
[2023-08-09 08:25] VITALS: RESP 18
--- NOTE | 2023-08-09 08:44 | ED ---
General Adult HPI - General Chief complaint: Chest Pain Stated complaint: R shoulder/rib pain-32 weeks preg Time Seen by Provider: 08/09/23 08:11 Source: patient, RN notes reviewed Mode of arrival: ambulatory Limitations: no limitations - History of Present Illness Initial comments: This is a 28-year-old female who presents to the emergency department for right- sided rib cage pain. Patient is 32 weeks and . States that she was diagnosed with the flu last week and has started to develop pain over the right rib cage. States that she has been coughing a significant amount, which she believes contributed to the pain. She does have some pain in the right shoulder as well, however it is predominantly over the right rib cage. Pain is worse when she tries to cough or take a deep breath. She is taking Tylenol without significant relief in symptoms. Denies any chest pain or shortness of breath. Also denies any pain in the abdomen or vaginal bleeding. Reports regular movement as well. - Related Data Home Medications Medication Instructions Recorded Confirmed Cephalexin [Keflex] 500 mg PO Q12HR 11/11/21 11/12/21 Previous Rx's Medication Instructions Recorded Acetaminophen-Codeine 300-30mg 1 - 2 each PO Q6HR PRN #24 tab 11/13/21 [Tylenol w/codeine #3] Ibuprofen [Motrin] 600 mg PO Q6HR PRN #40 tab 11/13/21 Ondansetron Odt [Zofran Odt] 4 mg PO Q8HR PRN #10 tab 04/17/23 Lidocaine 5% Patch [Lidoderm 5% 1 patch TOPICAL DAILY PRN #30 patch 08/09/23 Patch] Allergies Allergy/AdvReac Type Severity Reaction Status Date / Time sulfamethoxazole Allergy Rash/Hives Verified 08/09/23 08:14 [From ] trimethoprim [From ] Allergy Rash/Hives Verified 08/09/23 08:14 Review of Systems ROS Statement: Those systems with pertinent positive or pertinent negative responses have been documented in the HPI. ROS Other: All systems not noted in ROS Statement are negative. Past Medical History Past Medical History: No Reported History History of Any Multi-Drug Resistant Organisms: None Reported Past Surgical History: Tonsillectomy Additional Past Surgical History / Comment(s): lump removal FROM ARM Past Anesthesia/Blood Transfusion Reactions: No Reported Reaction Past Psychological History: No Psychological Hx Reported Smoking Status: Never smoker Past Alcohol Use History: None Reported Past Drug Use History: None Reported - Past Family History Mother Family Medical History: No Reported History General Exam Limitations: no limitations General appearance: alert, in no apparent distress Head exam: Present: atraumatic, normocephalic, normal inspection Respiratory exam: Present: normal lung sounds bilaterally, chest wall tenderness (Right rib cage). Absent: respiratory distress, wheezes, rales, rhonchi, str idor Cardiovascular Exam: Present: regular rate, normal rhythm, normal heart sounds. Absent: systolic murmur, diastolic murmur, rubs, gallop, clicks Neurological exam: Present: alert, oriented X3, CN II-XII intact Psychiatric exam: Present: normal affect, normal mood Skin exam: Present: warm, dry, intact, normal color. Absent: rash Course Vital Signs 08/09/23 08/09/23 08:11 09:21 Temperature 97.6 F 97.8 F Pulse Rate 90 91 Respiratory 18 18 Rate Blood Pressure 128/83 129/72 O2 Sat by Pulse 98 98 Oximetry Medical Decision Making - Medical Decision Making This is a 28 year old female who presents to the emergency department for pain over the right rib cage. Was pt. sent in by a medical professional or institution? @ -No Did you speak to anyone other than the patient for history? @ -No Did you review nursing and triage notes? @ -Yes, and I agree, it is accurate with regards to the patient's symptoms. Were old charts reviewed? @ -No Differential Diagnosis? @ -Differential Rib Cage Pain: Fracture, contusion, muscular strain, costochondritis, this is not meant to be an all-inclusive list. EKG interpreted by me (3pts min.)? @ -Not obtained X-rays interpreted by me (1pt min.)? @ -Not obtained CT interpreted by me (1pt min.)? @ -Not obtained U/S interpreted by me (1pt. min.)? @ -Not obtained What testing was considered but not performed? (CT, X-rays, U/S, labs)? Why? @ -None What meds were considered but not given? Why? @ -None Did you discuss the management of the patient with other professionals? @ -No Did you reconcile home meds? @ -No Was smoking cessation discussed for >3mins.? @ -No Was critical care preformed (if so, how long)? @ -No Were there social determinants of health that impacted care today? How? (Homelessness, low income, unemployed, alcoholism, drug addiction, transportation, low edu. Level, literacy, decrease access to med. care, detention, rehab)? @ -No Was there de-escalation of care discussed even if they declined? (Discuss DNR or withdrawal of care, Hospice)? @ -No What co-morbidities impacted this encounter? (DM, HTN, Smoking, COPD, CAD, Cancer, CVA, Hep., AIDS, mental health diagnosis, sleep apnea, morbid obesity)? @ - Was patient admitted / discharged? @ -Discharged. Patient was not exhibiting any chest pain or shortness of breath. Pain is all reproducible along the right rib cage. This is likely related to all of the coughing and possibly made worse by the putting further pressure on the ribs. Given that this was likely musculoskeletal in nature, advised that we do not need any imaging or further workup at this time. Patient was in agreement with this plan. However, I advised that if symptoms worsen or she does develop chest pain or shortness of breath, she should return for further workup. Lidocaine patch applied and a prescription for lidocaine patches was provided. Patient also sent home with an incentive spirometer and educated on taking several deep breaths an hour to reduce the risk of developing a secondary pneumonia. Otherwise advised continuing to take Tylenol as needed for pain relief. Patient discharged home in stable condition. Undiagnosed new problem with uncertain prognosis? @ -None Drug Therapy requiring intensive monitoring for toxicity (Heparin, Nitro, Insulin, Cardizem)? @ -None Were any procedures done? @ -None Diagnosis/symptom? @ -Pain over the right rib cage Acute, or Chronic, or Acute on Chronic? @ -Acute Uncomplicated (without systemic symptoms) or Complicated (systemic symptoms)? @ -Uncomplicated Side effects of treatment? @ -None Exacerbation, Progression, or Severe Exacerbation] @ -Not applicable Poses a threat to life or bodily function? @ -No Return precautions reviewed in depth, the patient is instructed to return to the emergency department with any new, worsening, or concerning symptoms. Patient verbalized understanding. This case was discussed in detail with the attending ED physician, Dr. Lehman. Presentation, findings, and treatment plan discussed in detail as well. Disposition Clinical Impression: Rib pain on right side Disposition: HOME SELF-CARE Additional Instructions: Return to the emergency department with any new, worsening, or concerning symptoms. Take Tylenol, 1g (1000mg) up to every 6 hours as needed for pain relief. You can also apply the lidocaine patches daily. Make sure you take several deep breaths an hour to reduce the risk of developing a secondary pneumonia. Prescriptions: Lidocaine 5% Patch [Lidoderm 5% Patch] 1 patch TOPICAL DAILY PRN #30 patch PRN Reason: Pain Is patient prescribed a controlled substance at d/c from ED?: No Referrals: Presley Osei Jr, [Primary Care Provider] - 1-2 days Time of Disposition: 08:58
[2023-08-09] MEDS: LIDOCAINE 4% PATCH TOPICAL ONE ×2 (08:53→08:54)
[2023-08-09 09:47] VITALS: BP 129/72; PULSE 91; TEMP 97.8
== END 2023-08-09 09:48 | disposition home or self-care (01) ==
LOC: EC 08:09
DX: O26.893 Other specified pregnancy related conditions, third trimester (principal); R07.81 Pleurodynia; Z88.1 Allergy status to other antibiotic agents; Z88.2 Allergy status to sulfonamides; Z3A.32 32 weeks gestation of pregnancy
CPT/HCPCS: 99284

== ENCOUNTER 2023-09-28 09:44 | Inpatient (IN) | payer BC ==
[2023-09-28] MEDS ORDERED: miSOPROStoL 200 MCG TAB PO PRN (10:03)
[2023-09-28] MEDS ORDERED: CARBOPROST TROMETHAMINE 250 MCG/ML 1 ML AMP IM PRN (10:03)
[2023-09-28] MEDS ORDERED: OXYTOCIN 10 UNIT/ML 1 ML VIAL IM PRN (10:03)
[2023-09-28] MEDS ORDERED: METHYLERGONOVINE 0.2 MG/ML 1 ML AMP IM PRN (10:03)
[2023-09-28] MEDS ORDERED: TRANEXAMIC 1,000 MG/100ML-NACL 1,000 MG in EMPTY BAG 1 BAG IV PRN (10:03)
[2023-09-28] MEDS: LACTATED RINGERS 1,000 ML IV SCH ×2 (10:30→13:54)
[2023-09-28 11:12] LABS: Basophils % (A) 0 %; Eosinophils # (A) 0.1 k/uL (0-0.7); Eosinophils % (A) 1 %; HCT 35.8 % (34.0-46.0); HGB 11.8 gm/dL (11.4-16.0); Lymphocytes # (A) 1.4 k/uL (1.0-4.8); Lymphocytes % (A) 15 %; MCH 30.1 pg (25.0-35.0); MCV 91.1 fL (80.0-100.0); Mean Platelet Volume 8.9; Monocytes # (A) 0.5 k/uL (0-1.0); Monocytes % (A) 6 %; Neutrophils # (A) 7.2 k/uL (1.3-7.7); Neutrophils % (A) 77 %; Platelet Count 255 k/uL (150-450); RBC 3.93 m/uL (3.80-5.40); RDW 14.6 % (11.5-15.5); WBC 9.4 k/uL (3.8-10.6)
[2023-09-28] MEDS: CITRIC ACID-SODIUM CITRATE 15 ML CUP PO ONE (11:37)
[2023-09-28] MEDS ORDERED: ONDANSETRON 4 MG/2 ML VIAL IVP PRN (12:32)
[2023-09-28] MEDS ORDERED: HYDROmorphone 0.5 MG/0.5 ML SYRINGE IVP PRN (12:32)
[2023-09-28] MEDS ORDERED: diphenhydrAMINE 50 MG/ML 1 ML VIAL IVP PRN ×3 (12:32→12:51)
[2023-09-28] MEDS ORDERED: NALOXONE 0.4 MG/ML 1 ML VIAL IV PRN (12:32)
[2023-09-28] MEDS: OXYTOCIN 30 UNITS/500 ML NS 30 UNIT in SALINE 1 500ML.BAG IV SCH (12:46)
--- NOTE | 2023-09-28 12:48 | P.HPOB ---
History of Present Illness H&P Date: 09/28/23 Chief Complaint: primary low transverse 28-year-old presents at 39 weeks for a primary low transverse . She needs a because in the past she had a hysterotomy to remove a cornual . Review of Systems All systems: negative Constitutional: Denies chills, Denies fever Eyes: denies blurred vision, denies pain Ears, nose, mouth and throat: Denies headache, Denies sore throat Cardiovascular: Denies chest pain, Denies shortness of breath Respiratory: Denies cough Gastrointestinal: Denies abdominal pain, Denies diarrhea, Denies nausea, Denies vomiting Genitourinary: Denies dysuria, Denies hematuria Musculoskeletal: Denies myalgias Integumentary: Denies pruritus, Denies rash Neurological: Denies numbness, Denies weakness Psychiatric: Denies anxiety, Denies depression Endocrine: Denies fatigue, Denies weight change Past Medical History Past Medical History: No Reported History Additional Past Medical History / Comment(s): coming in for c section. History of Any Multi-Drug Resistant Organisms: None Reported Past Surgical History: Tonsillectomy Additional Past Surgical History / Comment(s): lump removal FROM ARM, lap for ectopic Past Anesthesia/Blood Transfusion Reactions: No Reported Reaction Past Psychological History: No Psychological Hx Reported Smoking Status: Never smoker Past Alcohol Use History: None Reported Past Drug Use History: None Reported - Past Family History Mother Family Medical History: No Reported History Medications and Allergies Home Medications Medication Instructions Recorded Confirmed Type Unk 1 tab PO DAILY 09/22/23 09/28/23 History Allergies Allergy/AdvReac Type Severity Reaction Status Date / Time sulfamethoxazole Allergy Rash/Hives Verified 09/28/23 10:02 [From ] trimethoprim [From ] Allergy Rash/Hives Verified 09/28/23 10:02 Exam Osteopathic Statement: *. No significant issues noted on an osteopathic structural exam other than those noted in the History and Physical/Consult. Vital Signs Temp Pulse Resp BP Pulse Ox 09/28/23 09:59 97.1 F L 94 18 127/87 99 Intake and Output 09/27/23 09/28/23 09/28/23 22:59 06:59 14:59 Other: Weight 92.533 kg Heart: Regular rate and rhythm Lungs: Clear to auscultation bilaterally Abdomen: Soft, nontender Extremities: Negative Homans sign Results Result Diagrams: 09/28/23 10:24 Assessment and Plan (1) History of uterine scar due to previous surgery Current Visit: Yes Status: Acute Code(s): Z98.891 - HISTORY OF UTERINE SCAR FROM PREVIOUS SURGERY SNOMED Code(s): 9690132409 (2) 39 weeks gestation of Current Visit: Yes Status: Acute Code(s): Z3A.39 - 39 WEEKS GESTATION OF SNOMED Code(s): 82383691 Plan: 1. primary low transverse
[2023-09-28] MEDS ORDERED: SIMETHICONE 80 MG CHEWABLE PO PRN (12:51)
[2023-09-28] MEDS ORDERED: LANOLIN CREAM 1 GM TUBE TOPICAL PRN (12:51)
[2023-09-28] MEDS ORDERED: METOCLOPRAMIDE 5 MG/ML 2 ML VIAL IVP PRN (12:51)
[2023-09-28] MEDS ORDERED: diphenhydrAMINE 25 MG CAP PO PRN (12:51)
[2023-09-28] MEDS ORDERED: diphenhydrAMINE 50 MG CAP PO PRN (12:51)
[2023-09-28] MEDS ORDERED: ZOLPIDEM 5 MG TAB PO PRN (12:51)
--- NOTE | 2023-09-28 12:51 | P.OP ---
Date of Procedure: 09/28/23 Preoperative Diagnosis: 1. at 39 weeks 2. uterine scar from previous surgery Postoperative Diagnosis: same Procedure(s) Performed: primary low transverse Anesthesia: spinal Surgeon: Ginny Pastor Property Valuer #1: Aiyana Doshi Estimated Blood Loss (ml): 710 IV fluids (ml): 1,000 Urine output (ml): 150 Pathology: none sent Condition: stable Disposition: floor Operative Findings: viable female, 9,9 weight 7#3oz normal uterus, tubes and ovaries. area of previous scar felt to be thin Description of Procedure: Patient was taken to the operating room where spinal anesthesia was found be adequate. She was prepped and draped in normal sterile fashion in dorsal supine position with a leftward tilt. Pfannenstiel skin incision was made the scalpel and carried through to the underlying layer of fascia with the scalpel. Fascia was incised in midline and carried bilaterally with the Scott scissors. The superior aspect of the fascial incision was grasped with Sundance clamps elevated and the underlying rectus muscles dissected off with the Scott's. Attention was then turned to inferior aspect of same incision which in a similar fashion was grasped tented up and the underlying rectus muscles dissected off with the Scott's. The rectus muscles were the midline and the peritoneum was identified tented up and entered sharply with the scalpel. The incision was extended superiorly and inferiorly with good visualization of the bladder. The bladder blade was inserted and the vesicouterine peritoneum was incised the Metzenbaums then carried bilaterally and bladder flap created digitally. A low transverse incision was then made on the uterus with the scalpel. This was carried bilaterally and digital manner. Infant's head delivered atraumatically, nose and mouth bulb suctioned, cord clamped and cut, handed off to waiting nurses. Apgars 9,9, weight 7 lbs. 3 oz. Placenta delivered manually, intact with three-vessel cord. The uterus is exteriorized and cleared of all clots and debris. The uterine incision was closed with 0 Vicryl in a running locked fashion. Second layer of the same sutures used in imbricating fashion to obtain excellent hemostasis. Both ovaries and tubes appeared normal. The right cornu has a small defect-thinner than surrounding tissue. The uterus was placed back into the abdomen. The peritoneum was reapproximated using 2-0 Vicryl in a running fashion. The muscles were reapproximated using 2-0 Vicryl in interrupted fashion. The fascia was reapproximated using 0 Vicryl in a running fashion. The subcutaneous tissues closed with 3-0 Vicryl running fashion. The skin was closed daniela. Patient tolerated the procedure well, sponge and instrument counts were correct times 2 and she was taken to the recovery room in stable condition.
[2023-09-28] MEDS ORDERED: OXYTOCIN 30 UNITS/500 ML NS 30 UNIT in SALINE 1 500ML.BAG IV SCH (13:00)
[2023-09-28] MEDS: ACETAMINOPHEN TAB 500 MG TAB PO SCH (15:59)
[2023-09-28] MEDS: KETOROLAC 15 MG/ML 1 ML VIAL IVP PRN (19:10)
[2023-09-28] MEDS: IBUPROFEN 600 MG TAB PO SCH (19:12)
[2023-09-28] MEDS: SENNOSIDES-DOCUSATE SODIUM 1 EACH TAB PO SCH (19:58)
[2023-09-28 20:09] VITALS: RESP 16
[2023-09-29] MEDS: KETOROLAC 15 MG/ML 1 ML VIAL IVP SCH (01:18)
[2023-09-29 05:29] LABS: Basophils % (A) 0 %; Eosinophils # (A) 0.1 k/uL (0-0.7); Eosinophils % (A) 1 %; HGB 11.4 gm/dL (11.4-16.0); Lymphocytes # (A) 1.9 k/uL (1.0-4.8); Lymphocytes % (A) 13 %; MCH 29.6 pg (25.0-35.0); MCHC 32.5 g/dL (31.0-37.0); MCV 90.9 fL (80.0-100.0); Mean Platelet Volume 9.6; Monocytes % (A) 7 %; Neutrophils % (A) 78 %; Platelet Count 278 k/uL (150-450); RBC 3.85 m/uL (3.80-5.40); RDW 14.9 % (11.5-15.5); WBC 14.1 k/uL (3.8-10.6)
--- NOTE | 2023-09-29 12:42 | P.PN ---
Progress Note - Text Progress Note Date: 09/29/23 Postoperative day 1 status post section under spinal anesthesia, and intrathecal morphine given for postoperative analgesia, patient doing well, there is no anesthesia related complications, Patient had no headache, vital signs stable , Assessment and plan= postop day 1 status post , doing well there is no anesthesia related complication.
--- NOTE | 2023-09-30 08:10 | P.PNOBGPC ---
Subjective - Subjective Principal diagnosis: S/P 1*LTCS POD #1 Interval history: She was seen and examined. Denies nausea, vomiting, chest pain, shortness of breath and pain. Patient reports: Reports appetite normal, Reports voiding normally, Reports pain well controlled, Reports ambulating normally : doing well Objective - Vital Signs Latest vital signs: Vital Signs Temp Pulse Resp BP Pulse Ox 09/29/23 23:55 97.6 F 71 16 127/76 96 09/29/23 16:00 89 16 115/73 09/29/23 13:47 82 16 114/70 Intake and Output 09/29/23 09/30/23 09/30/23 22:59 06:59 14:59 Intake Total 600 Balance 600 Intake: Oral 600 Other: # Voids 1 - Exam Lungs: bilateral: normal Chest: Normal S1, Normal S2 Extremities: Present: normal Abdomen: Present: normal appearance, soft. Absent: distention, tenderness Incision: Present: normal, dry, intact Uterus: Present: normal, firm Assessment and Plan (1) History of uterine scar due to previous surgery Current Visit: Yes Status: Resolved Code(s): Z98.891 - HISTORY OF UTERINE SCAR FROM PREVIOUS SURGERY SNOMED Code(s): 0166110623 (2) 39 weeks gestation of Current Visit: Yes Status: Resolved Code(s): Z3A.39 - 39 WEEKS GESTATION OF SNOMED Code(s): 77204175 (3) Status post primary low transverse section Current Visit: Yes Status: Acute Code(s): Z98.891 - HISTORY OF UTERINE SCAR FROM PREVIOUS SURGERY SNOMED Code(s): 343323010 Plan: 1. cont po care
--- NOTE | 2023-09-30 08:13 | P.DS ---
Providers Date of admission: 09/28/23 09:44 Expected date of discharge: 09/30/23 Attending physician: Ginny Pastor Primary care physician: Stated None - Discharge Diagnosis(es) (1) History of uterine scar due to previous surgery Current Visit: Yes Status: Resolved (2) 39 weeks gestation of Current Visit: Yes Status: Resolved (3) Status post primary low transverse section Current Visit: Yes Status: Acute Hospital Course: Patient presented for primary low transverse . She underwent this procedure without complication. Denies nausea, vomiting, chest pain, shortness of breath or calf pain. Patient would be discharged home day #2 in stable condition to follow-up with me in 2 weeks. Plan - Discharge Summary Discharge Rx Participant: No New Discharge Prescriptions: No Action Unk 1 tab PO DAILY Discharge Medication List Unk 1 tab PO DAILY 09/22/23 [History] Follow up Appointment(s)/Referral(s): Ginny Pastor DO [Doctor of Osteopathic Medicine] - 11/11/23 10:30 am (Post C/S Appointment 10-12-2023 at 10:15am) Discharge Disposition: HOME SELF-CARE
[2023-09-30 08:50] VITALS: BP 135/78; PULSE 97; TEMP 97.7
== END 2023-09-30 11:02 | disposition home or self-care (01) | DRG 788 ==
LOC: 4FBP 09:44
PROVIDERS: ADMIT Obstetrics & Gynecology; ATTEND Obstetrics & Gynecology
PROC: 10D00Z1 Extraction of Products of Conception, Low, Open Approach (ICD-10-PCS; principal; 2023-09-28 12:00)
DX: O34.211 Maternal care for low transverse scar from previous cesarean delivery (principal); N85.8 Other specified noninflammatory disorders of uterus; Z3A.39 39 weeks gestation of pregnancy; Z37.0 Single live birth; Z88.2 Allergy status to sulfonamides
CPT/HCPCS: 85025; 86850; 86900; 86901